=== PATIENT | female | born 1970 | race Caucasian/White ===

== ENCOUNTER 2016-10-04 00:15 | Emergency (ER) | payer MEDICARE, MEDICAID ==
--- NOTE | 2016-10-21 16:41 | ER ---
ADMIT: 10/04/2016 RM/LOC: ER [facility] MR#: [id number] [facility] [id number] FRANCK WAGGONER [address] [place] [address] Emergency Room Report SEX: F AGE: 46 : 1970 DATE: 10/04/2016 A 46-year-old who got up out of bed, who was walking through the house when she stubbed her 5th toe on her right foot against the furniture with immediate pain after she felt pop. See T-sheet for remainder of history and physical. X- ray reveals fracture of the 5th toe. She is given a hard shoe, [place], was instructed to follow up this week with Podiatry. Jayson Padgett MD/ brad JOB #: [id number] CC: Kevin Hoff MD, Attending Physician Wisam Ambriz MD, Family Physician
== END 2016-10-04 01:30 | disposition home or self-care (01) ==
LOC: ER 00:15
DX: S92.514A Nondisplaced fracture of proximal phalanx of right lesser toe(s), initial encounter for closed fracture (principal); F17.210 Nicotine dependence, cigarettes, uncomplicated; J45.909 Unspecified asthma, uncomplicated; Z90.49 Acquired absence of other specified parts of digestive tract; Z87.81 Personal history of (healed) traumatic fracture; Z79.899 Other long term (current) drug therapy; W22.03XA Walked into furniture, initial encounter; Y92.009 Unspecified place in unspecified non-institutional (private) residence as the place of occurrence of the external cause